=== PATIENT | male | born 1990 | race Caucasian/White ===

== ENCOUNTER 2016-09-11 18:15 | Emergency (ER) | payer BC ==
[2016-09-11 19:02] VITALS: RESP 16; TEMP 98
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
[2016-09-11] MEDS ORDERED: HYDROcodone-APAP 5 MG -325 MG TABLET PO SCH (19:45)
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
== END 2016-09-11 20:12 | disposition home or self-care (01) ==
LOC: ER 18:15
DX: S52.511A Displaced fracture of right radial styloid process, initial encounter for closed fracture (principal); S52.611A Displaced fracture of right ulna styloid process, initial encounter for closed fracture; R51 Headache; R41.0 Disorientation, unspecified; M79.5 Residual foreign body in soft tissue; V86.09XA Driver of other special all-terrain or other off-road motor vehicle injured in traffic accident, initial encounter
CPT/HCPCS: 29125; 70450; 73110; 99282

== ENCOUNTER → 2016-10-05 | Outpatient (CLI) | payer BC ==
--- NOTE | 2016-10-05 15:49 | DI ---
RIGHT WRIST, 10/05/2016 1:31 PM: Clinical History: Closed fracture of the distal right radius. Previous Exam: 09/11/2016. 3 views are submitted. There is an intra-articular fracture of the distal radius with slight impactio n and dorsal angulation of the distal fracture fragment. The articular surface involvement is probabl y in the range of 25%. Alignment and position are unchanged from the previous study. There is a nondi splaced avulsion type fracture of the ulnar styloid. Reading: Intra-articular fracture of the distal radius with slight impaction. There is an avulsion fracture of the ulnar styloid. There has been no change in alignment and position since the previous exam.
== END ==
LOC: ORTHO 13:51
PROVIDERS: ATTEND Orthopaedic Surgery
DX: S52.571A Other intraarticular fracture of lower end of right radius, initial encounter for closed fracture (principal); V29.9XXA Motorcycle rider (driver) (passenger) injured in unspecified traffic accident, initial encounter
CPT/HCPCS: 73110

== ENCOUNTER → 2016-10-16 | Outpatient (CLI) | payer BC ==
--- NOTE | 2016-10-16 16:46 | DI ---
XR WRIST COMPLETE MIN 3VW,10/16/2016 11:28 AM: Clinical History: Right distal radial fracture. Previous Exam: October 05, 2016 Findings: 3 views of the right wrist are obtained, and demonstrate a slightly comminuted intra-articular fractu re of the right distal radius. There is a small avulsion fracture of the ulnar styloid. Impression: Comminuted intra-articular fracture of the right distal radius. Avulsion fracture of the right ulnar styloid
== END ==
LOC: ORTHO 11:36
PROVIDERS: ATTEND Orthopaedic Surgery
DX: S52.571D Other intraarticular fracture of lower end of right radius, subsequent encounter for closed fracture with routine healing (principal)
CPT/HCPCS: 73110

== ENCOUNTER → 2016-11-05 | Outpatient (CLI) | payer BC ==
--- NOTE | 2016-11-06 07:52 | DI ---
History: closed fracture right wrist Comparison: October 16, 2016 Findings: Faint linear lucencies extend through the distal radius, less conspicuous as compared with October 16, 2016. Alignment is good. Ulnar styloid process fracture is difficult to see on the current study. Impression: Progressive healing of distal radial and ulnar fractures
== END ==
LOC: ORTHO 16:03
PROVIDERS: ATTEND Orthopaedic Surgery
DX: S52.571D Other intraarticular fracture of lower end of right radius, subsequent encounter for closed fracture with routine healing (principal)
CPT/HCPCS: 73110